=== PATIENT | female | born 1985 | race Caucasian/White ===

== ENCOUNTER 2016-03-06 16:12 | Emergency (ER) ==
[2016-03-06 16:37] LABS: URINE MICRO REVIEW NEEDED? NO; URINE SOURCE CLEAN CATCH
[2016-03-06 16:44] LABS: BILIRUBIN URINE NEGATIVE (NEGATIVE); BLOOD URINE SMALL (NEGATIVE); COLOR YELLOW; GLUCOSE URINE NEGATIVE (NEGATIVE); LEUKOCYTES URINE LARGE (NEGATIVE); NITRITE URINE POSITIVE (NEGATIVE); PH URINE 5.5; PROTEIN URINE 30 mg/dL (NEGATIVE); SP GRAVITY URINE 1.022; TURBIDITY URINE HAZY (CLEAR); UR EPITHELIAL CELLS <10 /HPF (<10); URINE BACTERIA 4+ /HPF; URINE CULTURE NEEDED? YES; URINE RBC <10 /HPF (<10); URINE WBC TNTC /HPF (<10); UROBILINOGEN URINE NORMAL (NORMAL)
[2016-03-06] MEDS ORDERED: TORADOL IM ONE (16:51)
[2016-03-06] MEDS ORDERED: PHENERGAN IM ONE (16:51)
[2016-03-06] MEDS ORDERED: ROCEPHIN IM ONE (16:53)
[2016-03-06] MEDS ORDERED: XYLOCAINE-MPF 1% INJ ONE (16:53)
[2016-03-06] MEDS ORDERED: MORPHINE IM ONE (16:54)
--- NOTE | 2016-03-06 17:02 | PROVIDER DOCUMENTATION ---
HPI-Female /OB/Breast - General Chief Complaint: UTI Symptoms Stated Complaint: abd pain/flank pain Time Seen by Provider: 03/06/16 16:38 Source: reports: patient Allergies/Adverse Reactions: Patient Allergies Allergy/AdvReac Type Severity Reaction Status Date / Time No Known Allergies Allergy Verified 03/06/16 17:21 - History of Present Illness-Female /OB Nature of Presenting Problem: 31 y/o WF c/o L flank pain, frequency x 2 days. Pt states vomiting x 1 episode. Denies any abd. pain, diarrhea/constipation. States pain 8/10, and constant/achy. Denies any other sxs. Review of Systems - Adult - REVIEW OF SYSTEMS - ADULT Constitutional: reports: no symptoms reported. denies: chills, fever Eyes: reports: no symptoms reported. denies: blurred vision, double vision Ears, Nose, Mouth & Throat: reports: no symptoms reported. denies: ear pain, nose pain Cardiovascular: reports: no symptoms reported. denies: chest pain, palpitations Respiratory: reports: no symptoms reported. denies: dyspnea on exertion, shortness of breath Gastrointestinal: reports: see HPI, vomiting. denies: abdominal pain, constipation Genitourinary: reports: see HPI, frequency, flank pain. denies: dysuria Musculoskeletal: reports: no symptoms reported. denies: joint pain, joint swelling Integumentary: reports: no symptoms reported. denies: nail changes, rash Neurological: reports: no symptoms reported. denies: numbness, paresthesia Psychiatric: reports: no symptoms reported Endocrine: reports: no symptoms reported. denies: cold intolerance, heat intolerance Hematologic/Lymphatic: reports: no symptoms reported. denies: easy bruising, prolonged bleeding Allergic/Immunologic: reports: no symptoms reported All Other Systems: Reviewed and Negative Past History - Adult - PAST MEDICAL HISTORY-ADULT Review of Records: reports: Nursing Assessment Review, Medications Reviewed Neurological: reports: headaches/migraines, Seizures/Epilepsy - PRIOR SURGERIES/PROCEDURES Surgical/Procedure History: reports: none - SOCIAL HISTORY Smoking: denies Alcohol Use Frequency: never Physical Exam-General - PHYSICAL EXAM-ADULT Initial Vital Signs Reviewed: Yes - CONSTITUTIONAL General Appearance: alert, mild distress - EYES Eyes: pink conjunctivae - HEAD, EARS, NOSE, MOUTH & THROAT HENMT: normocephalic/atraumatic, moist mucous membranes - NECK Neck: normal inspection - RESPIRATORY Respiratory: lungs clear, normal breath sounds. negative: crackles, rales, rhonchi, stridor, wheezing - CARDIOVASCULAR Cardiovascular: regular rate, rhythm. negative: bradycardia, tachycardia - GASTROINTESTINAL (ABDOMEN) Abdominal Exam: normal bowel sounds, soft, tenderness (generalized). negative: distended, guarding, rigid, rebound, McBurney's point tenderness, Mobley's sign - MUSCULOSKELETAL Back Exam: no vertebral tenderness, CVA tenderness (mild, L), other (L low back pain) Extremity: normal gait - SKIN Integumentary: normal color, normal turgor, warm/dry - NEUROLOGIC Neurologic: negative: aphasia - PSYCHIATRIC Psych/Mental Status: normal mood/affect, normal thought content, normal thought process, oriented x 3 Progress - PLAN OF CARE/RESULTS Progress/Plan/Lab Results: Laboratory Tests 03/06/16 03/06/16 16:20 16:20 Urine Source CLEAN CATCH Urine Color YELLOW Urine Turbidity HAZY Urine pH 5.5 Ur Specific [place] 1.022 Urine Protein 30 A Ur Glucose (Stick) NEGATIVE Ur Ketones (Stick) 10 A Urine Blood SMALL A Urine Nitrite POSITIVE A Urine Bilirubin NEGATIVE Urobilinogen Dipstick NORMAL Urine Leukocytes LARGE A Urine WBC (Auto) TNTC A Urine RBC (Auto) <10 U Epithel Cells (Auto) <10 Urine Bacteria (Auto) 4+ Urine Test NEGATIVE Orders Category Date Time Status TEST-URINE [PREG] Stat Lab 03/06/16 16:20 Completed UA NIMS W/REFLEX CULT [URINALYSIS] Stat Lab 03/06/16 16:20 Completed URINE CULTURE [RM] Routine Lab 03/06/16 16:47 Received CefTRIAXONE [Rocephin] Med 03/06/16 16:53 Discontinued 1 gm IM NOW ONE Ketorolac [Toradol] Med 03/06/16 16:51 Discontinued 60 mg IM NOW ONE Lidocaine 1% Pf [Xylocaine-Mpf 1%] Med 03/06/16 16:53 Discontinued 5 ml INJ NOW ONE Morphine Med 03/06/16 16:54 Discontinued 4 mg IM NOW ONE Promethazine [Phenergan] Med 03/06/16 16:51 Discontinued 25 mg IM NOW ONE Vital Signs Temp Pulse Resp BP Pulse Ox 03/06/16 16:18 98.0 F 65 18 110/74 100 No Known Allergies Allergy (Verified 05/29/13 19:59) Ampicillin 250 mg PO Q6HR #30 capsule 11/13/13 Tramadol HCl [Ultram] 50 mg PO Q4-6H PRN PRN #20 tablet 11/13/13 Phenazopyridine HCl [Pyridium] 100 mg PO TID #6 tablet 03/06/16 Promethazine [Phenergan] 25 mg PO Q6H PRN PRN #20 tablet 03/06/16 Sulfamethoxazole/Trimethoprim [Bactrim Ds Tablet] 1 each PO BID #14 tablet 03/06 I&O 03/05/16 03/06/16 03/07/16 06:59 06:59 06:59 Output Total 30 Balance -30 Laboratory 03/06/16 03/06/16 16:20 16:20 Urine Source CLEAN CATCH Urine Color YELLOW Urine Turbidity HAZY Urine pH 5.5 Ur Specific [place] 1.022 Urine Protein 30 A Ur Glucose (Stick) NEGATIVE Ur Ketones (Stick) 10 A Urine Blood SMALL A Urine Nitrite POSITIVE A Urine Bilirubin NEGATIVE Urobilinogen Dipstick NORMAL Urine Leukocytes LARGE A Urine WBC (Auto) TNTC A Urine RBC (Auto) <10 U Epithel Cells (Auto) <10 Urine Bacteria (Auto) 4+ Urine Test NEGATIVE Discussed medication use, UA results, and f/u with pt. - XRAY 1 XRAY Study: Chest, Abdomen XRAY Interpretation: Nonspecific findings Departure - Departure Time of Disposition Order: 17:04 DIAGNOSIS: UTI (urinary tract infection) Qualifiers: Urinary tract infection type: acute cystitis Hematuria presence: with hematuria Qualified Code(s): N30.01 - Acute cystitis with hematuria Disposition: HOME 01 Certified Medical Emergency: Emergent Condition: Stable Additional Instructions: Take medications as directed. Return if symptoms get worse. Drink plenty of fluids. ED Follow Up Instructions: You have been treated by a care provider in the Emergency Department. These instructions are being provided to you so you can have an understanding of how to care for yourself upon discharge. Upon discharge from the Emergency Department, you are responsible for making arrangements for follow-up care by a physician of your choice. Take all prescribed medications as directed. Return to the Emergency Department immediately for any new or worsening symptoms. You may call the Physician Referral phone number at [phone] to obtain a list of Physicians who are taking new patients. Prescriptions: Sulfamethoxazole/Trimethoprim [Bactrim Ds Tablet] 1 each PO BID #14 tablet Promethazine [Phenergan] 25 mg PO Q6H PRN PRN #20 tablet PRN Reason: Nausea Phenazopyridine HCl [Pyridium] 100 mg PO TID #6 tablet Referrals: None,PCP [Primary Care Provider] - Attestation - Physician/ Mid-level Attestation Patient care was provided by Mid-level provider (PHOTOGEOLOGIST/PA):: Yes Mid-level provider:: Lou Nunez Mid-level documentation review:: The Mid-level provider documentation, treatment plan and medical decision making was reviewed by the physician who agrees with all treatment and medical decision making by the MLP.
[2016-03-06 18:15] VITALS: BP 105/72
--- NOTE | 2016-03-07 07:56 | Diag Imaging Result Document ---
PROCEDURE NAME: FLAT/UPRIGHT ABD/1 VIEW CHEST - 03/06/2016 FLAT AND UPRIGHT ABDOMEN: FINDINGS: The bowel gas pattern is nonspecific. There may be splenomegaly, as the superior inferior measurement of the spleen appears to exceed 15 cm. Otherwise, there is no evidence of organomegaly or mass. IMPRESSION: Splenomegaly, otherwise nonspecific abdomen. PA CHEST: FINDINGS: The appearance of the chest has not changed significantly since 11/28/2011. IMPRESSION: No acute disease.
== END 2016-03-06 18:16 | disposition home or self-care (01) ==
LOC: ED 16:12
DX: N30.01 Acute cystitis with hematuria (principal); R10.9 Unspecified abdominal pain; R35.0 Frequency of micturition; R11.10 Vomiting, unspecified; R10.817 Generalized abdominal tenderness; M54.5 Low back pain
CPT/HCPCS: 74022; 81001; 81025; 87077; 87088; 87186; 96372; J0696; J1885; J2270; J2550